=== PATIENT | female | born 1935 | race Caucasian/White ===

== ENCOUNTER → 2017-01-18 | Outpatient (CLI) | payer OTHER, BC | LOC: HYPER 01-05 14:40 | DX: T81.89XD Other complications of procedures, not elsewhere classified, subsequent encounter (principal); L89.150 Pressure ulcer of sacral region, unstageable; L89.512 Pressure ulcer of right ankle, stage 2; S61.401A Unspecified open wound of right hand, initial encounter; E11.622 Type 2 diabetes mellitus with other skin ulcer; M19.90 Unspecified osteoarthritis, unspecified site; E78.5 Hyperlipidemia, unspecified; F03.90 Unspecified dementia, unspecified severity, without behavioral disturbance, psychotic disturbance, mood disturbance, and anxiety; F33.9 Major depressive disorder, recurrent, unspecified; Z86.14 Personal history of Methicillin resistant Staphylococcus aureus infection; Z87.01 Personal history of pneumonia (recurrent); Z86.718 Personal history of other venous thrombosis and embolism; X58.XXXA Exposure to other specified factors, initial encounter; Y93.89 Activity, other specified; Y92.89 Other specified places as the place of occurrence of the external cause; Y99.8 Other external cause status; Y83.8 Other surgical procedures as the cause of abnormal reaction of the patient, or of later complication, without mention of misadventure at the time of the procedure ==

== ENCOUNTER → 2017-02-15 | Outpatient (CLI) | payer OTHER, BC ==
[~2017-02-15] MED LIST: CENTRUM SILVER1 EAC4 PO; COLACE100 MG PO; CYMBALTA30 MG PO; DEPAKOTE 250MG250 M1 PO; FISH OIL 1,001000 M2 PO; HYDROCODONE-APA1 TA1 PO; IRON325 PO; LIPITOR 20 MG T20 M1 PO; MAGNESIUM OXID400 MG PO; MIDODRINE HCL 55 M1 PO; MIRALAX17 GM PO; PROMOD946 ML PO; REMERON15 MG PO; SENNA8.6 MG PO; TRAZODONE HCL50 MG PO; VITAMIN D1000 UNI1 PO; VITAMINC500 PO; ZINC SULFATE220 MG PO; [UNRECOGNIZED DRUG - OTHER] PO
== END ==
LOC: HYPER 07:06
DX: T81.89XD Other complications of procedures, not elsewhere classified, subsequent encounter (principal); L89.512 Pressure ulcer of right ankle, stage 2; L89.150 Pressure ulcer of sacral region, unstageable; E11.622 Type 2 diabetes mellitus with other skin ulcer; L98.491 Non-pressure chronic ulcer of skin of other sites limited to breakdown of skin; M19.90 Unspecified osteoarthritis, unspecified site; E78.5 Hyperlipidemia, unspecified; F03.90 Unspecified dementia, unspecified severity, without behavioral disturbance, psychotic disturbance, mood disturbance, and anxiety; F33.9 Major depressive disorder, recurrent, unspecified; Z86.14 Personal history of Methicillin resistant Staphylococcus aureus infection; Z87.01 Personal history of pneumonia (recurrent); Z86.718 Personal history of other venous thrombosis and embolism; Y83.8 Other surgical procedures as the cause of abnormal reaction of the patient, or of later complication, without mention of misadventure at the time of the procedure

== ENCOUNTER 2017-02-22 06:00 | Day surgery (SDC) | payer OTHER, BC ==
[~2017-02-22] VITALS: Ht 154.9 cm; Wt 54.0 kg
--- NOTE | ~2017-02-22 | EKG ---
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
--- NOTE | ~2017-02-22 | O ---
[facility] [place] [address] OPERATIVE REPORT Name: ANDREW MATA [facility] [id number] Admission: 02/22/17 Attend Phys: French Rebolledo MD Discharge: 02/22/17 Date of : 39 Report #: [id number] THIS REPORT FOR: //name// CC: French Masters DATE OF SERVICE: 02/22/2017 PREOPERATIVE DIAGNOSIS: Stage 4 sacral pressure ulcer. POSTOPERATIVE DIAGNOSIS: Stage 4 sacral pressure ulcer. PROCEDURE: Excisional debridement of sacral stage IV pressure ulcer with excision of skin, subcutaneous tissue, and fascia. BALANCE CLERK: French Rebolledo MD. ANESTHESIA: IV sedation, local Marcaine 0.25% with epinephrine. INDICATIONS: The patient is a 81-year-old woman seen in wound care clinic with a chronic nonhealing sacral pressure soreness, has a small opening in the external skin and a large cavity underneath. Decision was made with the family that excisional debridement should be done to facilitate wound care with placement of a wound VAC. Informed consent was obtained. DESCRIPTION OF PROCEDURE: With the patient lying on her left side with a light IV sedation, 0.25% Marcaine with epinephrine was locally infiltrated after the wound was sterilely prepped. Needle tip electrocautery was used to make a skin incision of approximately 3.5 cm in diameter. This exposed a large subcutaneous cavity lined with chronic granulation tissue. Using the needle tip electrocautery, excision of skin and subcutaneous tissue was done down to the level of the fascia. The diseased fascia was excised along with all granulation tissue in the cavity. The resulting wound measured approximately 6 x 6 x 1.5 cm deep. The wound was then lined with healthy adipose tissue. No bone was exposed. Skin, subcutaneous tissue, and fascia were excised. Hemostasis was completed with electrocautery. The wound was packed with sterile saline gauze. Marcaine 0.25% with epinephrine was locally infiltrated in the subcutaneous tissue around the wound. The patient tolerated the procedure well. She will be allowed to go to a long-term facility today. By: 1102 1136 French Rebolledo MD /nt
[2017-02-22 10:29] LABS: HEMATOCRIT 28.7 % (37.0-47.0); HEMOGLOBIN 9.7 gm/dL (12.0-15.0); MCH 32.2 pg (26.0-34.0); MCHC 33.9 g/dL (28.0-37.0); MCV 94.9 fL (80.0-100.0); RBC 3.03 mil/uL (4.20-5.00); RDW 16.7 % (10.5-14.5); WBC 5.1 thou/uL (4.0-11.0)
[2017-02-22 10:30] VITALS: BP 101/74
[2017-02-22 10:50] LABS: CALCIUM 8.7 mg/dL (8.5-10.1); CREATININE 1.1 mg/dL (0.6-1.0)
== END 2017-02-22 14:15 | disposition home or self-care (01) ==
LOC: OR 06:00 → TBA 06:00 → OR 11:44
PROVIDERS: Specialist
DX: L89.154 Pressure ulcer of sacral region, stage 4 (principal); E78.00 Pure hypercholesterolemia, unspecified; D64.9 Anemia, unspecified; F32.89 Other specified depressive episodes; F41.8 Other specified anxiety disorders; Z88.8 Allergy status to other drugs, medicaments and biological substances; Z79.899 Other long term (current) drug therapy; Z96.653 Presence of artificial knee joint, bilateral; Z96.641 Presence of right artificial hip joint; Z90.710 Acquired absence of both cervix and uterus; Z90.49 Acquired absence of other specified parts of digestive tract
CPT/HCPCS: 50010; 50101; 50386; 50403; 56525; 62110; 62900; 70005

== ENCOUNTER → 2017-03-03 | Outpatient (CLI) | payer OTHER, BC | LOC: HYPER 06:55 | DX: T81.89XD Other complications of procedures, not elsewhere classified, subsequent encounter (principal); E11.622 Type 2 diabetes mellitus with other skin ulcer; L89.154 Pressure ulcer of sacral region, stage 4; L89.512 Pressure ulcer of right ankle, stage 2; L97.311 Non-pressure chronic ulcer of right ankle limited to breakdown of skin; L98.491 Non-pressure chronic ulcer of skin of other sites limited to breakdown of skin; F33.9 Major depressive disorder, recurrent, unspecified; G40.89 Other seizures; Z48.01 Encounter for change or removal of surgical wound dressing; N17.9 Acute kidney failure, unspecified; A41.9 Sepsis, unspecified organism; S72.111 Displaced fracture of greater trochanter of right femur; M62.81 Muscle weakness (generalized); R26.2 Difficulty in walking, not elsewhere classified; M19.90 Unspecified osteoarthritis, unspecified site; Z86.14 Personal history of Methicillin resistant Staphylococcus aureus infection; Z86.718 Personal history of other venous thrombosis and embolism; Z87.01 Personal history of pneumonia (recurrent); E78.5 Hyperlipidemia, unspecified; F03.90 Unspecified dementia, unspecified severity, without behavioral disturbance, psychotic disturbance, mood disturbance, and anxiety; X58.XXXD Exposure to other specified factors, subsequent encounter; Y83.8 Other surgical procedures as the cause of abnormal reaction of the patient, or of later complication, without mention of misadventure at the time of the procedure ==

== ENCOUNTER → 2017-03-29 | Outpatient (CLI) | payer OTHER, BC | LOC: HYPER 07:00 | DX: T81.89XD Other complications of procedures, not elsewhere classified, subsequent encounter (principal); E11.622 Type 2 diabetes mellitus with other skin ulcer; L89.150 Pressure ulcer of sacral region, unstageable; F33.9 Major depressive disorder, recurrent, unspecified; G40.89 Other seizures; M25.551 Pain in right hip; N17.9 Acute kidney failure, unspecified; A41.9 Sepsis, unspecified organism; M62.81 Muscle weakness (generalized); R26.2 Difficulty in walking, not elsewhere classified; E83.42 Hypomagnesemia; M19.90 Unspecified osteoarthritis, unspecified site; E78.5 Hyperlipidemia, unspecified; F03.90 Unspecified dementia, unspecified severity, without behavioral disturbance, psychotic disturbance, mood disturbance, and anxiety; Z86.718 Personal history of other venous thrombosis and embolism; Z86.14 Personal history of Methicillin resistant Staphylococcus aureus infection; Y83.8 Other surgical procedures as the cause of abnormal reaction of the patient, or of later complication, without mention of misadventure at the time of the procedure ==